=== PATIENT | female | born 1990 | race Hispanic/Latino ===

== ENCOUNTER → 2020-10-22 11:10 | Outpatient (CLI) | payer OTHER, MEDICAID, SELFPAY ==
[2020-10-22 21:08] LABS: Urine N gonorrhoeae NOT DETECTED
[2020-10-22 22:03] LABS: Urine Chlamydia NOT DETECTED
== END ==
PROVIDERS: PCP Physician Assistant Medical; Visit Provider Physician Assistant Medical
DX: N76.0 Acute vaginitis (principal); B96.89 Other specified bacterial agents as the cause of diseases classified elsewhere; R10.9 Unspecified abdominal pain
CPT/HCPCS: 81002; 81025; 87086; 87491; 87591

== ENCOUNTER → 2020-12-18 12:42 | Outpatient (CLI) | payer OTHER, SELFPAY ==
[2020-12-18 21:00] LABS: HIV 1 & 2 Ab/Ag 4th Gen Combo NEGATIVE (NEGATIVE)
[2020-12-20 02:24] LABS: Hepatitis B Core AB w/Reflex Negative (Negative)
[2020-12-20 09:49] LABS: RPR Screen Non Reactive (Non Reactive)
== END ==
PROVIDERS: PCP Physician Assistant Medical; Visit Provider Family Medicine
DX: Z11.3 Encounter for screening for infections with a predominantly sexual mode of transmission (principal); B96.89 Other specified bacterial agents as the cause of diseases classified elsewhere; N76.0 Acute vaginitis
CPT/HCPCS: 86592; 86704; 87102; 87389; 87491; 87522; 87591; 87661; 87905

== ENCOUNTER → 2021-04-16 14:59 | Outpatient (CLI) | payer OTHER, MEDICAID, SELFPAY | PROVIDERS: PCP Physician Assistant Medical; Visit Provider Family Medicine | DX: R30.0 Dysuria (principal); R35.89 Other polyuria | CPT/HCPCS: 87086 ==

== ENCOUNTER → 2021-06-11 11:15 | Outpatient (CLI) | payer OTHER, MEDICAID, SELFPAY ==
[2021-06-11 19:19] LABS: Add Manual Diff / Slide Review NO; Basophils Absolute Auto 0 /uL (0-100); Basophils Percent Auto 0.4 % (0-2); Eosinophils Absolute Auto 100 /uL (0-450); Eosinophils Percent Auto 0.9 % (2-4); Hematocrit 43.1 % (36-46); Hemoglobin 14.5 g/dL (12.0-16.0); Lymphocytes Absolute Auto 1700 /uL (1100-4500); Lymphocytes Percent Auto 21.3 % (25-40); Mean Corpuscular HGB Conc 33.6 % (30-36); Mean Corpuscular Hemoglobin 30.9 PG (26-34); Mean Corpuscular Volume 91.9 fL (80-100); Monocytes Absolute Auto 400 /uL (0-900); Monocytes Percent Auto 4.8 % (3-14); Neutrophils Absolute Auto 5800 /uL (1500-7000); Neutrophils Percent Auto 72.6 % (50-75); Platelet Count 278 X10^3/uL (150-400); Red Blood Cell Count 4.69 X10^6/uL (4.0-5.2); Red Cell Distribution Width 13.7 % (11.6-14.8); White Blood Cell Count 7.9 X10^3/uL (4.5-11.0)
[2021-06-11 19:25] LABS: Appearance Urine UA CLEAR; Bilirubin Urine UA NEGATIVE (NEGATIVE); Color Urine UA YELLOW; Glucose Urine UA NEGATIVE (Negative); Ketones Urine UA NEGATIVE (NEGATIVE); Leukocyte Esterase Urine UA NEGATIVE (NEGATIVE); Nitrite Urine UA NEGATIVE (Negative); Occult Blood Urine UA 3+ (Negative); Protein Urine UA TRACE (Negative); Urobilinogen Urine UA 0.2 E.U./dL (0.2)
[2021-06-11 19:36] LABS: Amorphous Sediment Urine 2+; RBC Urine 5-10/HPF (0-5/HPF); Squamous Epithelial Cell Urine 5-10 /HPF (0-5/HPF); WBC Urine None Seen (0-5/HPF)
[2021-06-11 19:37] LABS: Bacteria Urine Few (2-10); Culture Indicated Urine Cult Not Indicated
[2021-06-11 21:14] LABS: Urine N gonorrhoeae NOT DETECTED
[2021-06-11 21:22] LABS: Urine Chlamydia NOT DETECTED
== END ==
PROVIDERS: PCP Physician Assistant Medical; Visit Provider Physician Assistant Medical
DX: B96.89 Other specified bacterial agents as the cause of diseases classified elsewhere (principal); K92.1 Melena; N30.00 Acute cystitis without hematuria; N76.0 Acute vaginitis; Z11.3 Encounter for screening for infections with a predominantly sexual mode of transmission
CPT/HCPCS: 81001; 81002; 85025; 87491; 87591

== ENCOUNTER → 2022-03-18 15:23 | Outpatient (CLI) | payer OTHER, MEDICAID, SELFPAY | PROVIDERS: PCP Physician Assistant Medical; Visit Provider Physician Assistant Medical | DX: N39.0 Urinary tract infection, site not specified (principal) | CPT/HCPCS: 87086 ==

== ENCOUNTER → 2023-06-01 13:23 | Outpatient (CLI) | payer SELFPAY ==
[2023-06-01 18:46] LABS: Add Manual Diff / Slide Review NO; Basophils Absolute Auto 0 /uL (0-100); Basophils Percent Auto 0.5 % (0-2); Eosinophils Absolute Auto 100 /uL (0-450); Eosinophils Percent Auto 0.8 % (2-4); Hematocrit 42.7 % (36-46); Hemoglobin 14.1 g/dL (12.0-16.0); Lymphocytes Absolute Auto 2800 /uL (1100-4500); Lymphocytes Percent Auto 29.1 % (25-40); Mean Corpuscular HGB Conc 33.1 % (30-36); Mean Corpuscular Hemoglobin 30.1 PG (26-34); Mean Corpuscular Volume 91.1 fL (80-100); Monocytes Absolute Auto 600 /uL (0-900); Monocytes Percent Auto 5.9 % (3-14); Neutrophils Absolute Auto 6200 /uL (1500-7000); Neutrophils Percent Auto 63.7 % (50-75); Platelet Count 336 X10^3/uL (150-400); Red Blood Cell Count 4.69 X10^6/uL (4.0-5.2); Red Cell Distribution Width 13.4 % (11.6-14.8); White Blood Cell Count 9.7 X10^3/uL (4.5-11.0)
[2023-06-01 19:01] LABS: BUN Creatinine Ratio 16.7 (6-22); Blood Urea Nitrogen 11 mg/dL (7-17); Calcium 9.8 mg/dL (8.4-10.2); Carbon Dioxide 30 mmol/L (22-32); Chloride 103 mmol/L (98-107); Cholesterol 250 mg/dL (140-199); Estimated Glomerular Filt Rate > 60 mL/min (>60); Glucose 97 mg/dL (70-100); HDL Cholesterol 48 mg/dL (40-60); HEMOLYSIS < 15 (0-50); LDL Cholesterol Calculated 175 mg/dL (<100); Potassium 3.9 mmol/L (3.4-5.1); Sodium 139 mmol/L (137-145); Triglycerides 136 mg/dL (35-150)
[2023-06-01 19:10] LABS: Troponin I < 0.012 ng/mL (0.01-0.034)
== END ==
PROVIDERS: PCP Physician Assistant Medical; Visit Provider Family Medicine
DX: R07.9 Chest pain, unspecified (principal); K21.9 Gastro-esophageal reflux disease without esophagitis; Z87.19 Personal history of other diseases of the digestive system
CPT/HCPCS: 80048; 80061; 84484; 85025

== ENCOUNTER → 2023-06-28 15:50 | Outpatient (CLI) | payer SELFPAY | PROVIDERS: PCP Physician Assistant Medical; Visit Provider Physician Assistant | DX: R10.9 Unspecified abdominal pain (principal) | CPT/HCPCS: 87086 ==

== ENCOUNTER 2023-12-11 08:52 | Emergency (ER) | payer BC, SELFPAY ==
[2023-12-11] VITALS (9 sets, daily range): BP systolic 108–127; BP diastolic 57–82; PULSE 69–88; RESP 16; TEMP 36.6; O2SAT 94–99; BMI 28.3
--- NOTE | 2023-12-11 09:16 | ED.ABDPAIN ---
HPI - Abdominal Pain General Chief Complaint: Abdominal Pain Stated Complaint: abd pain- hx of diverticulitis Time Seen by Provider: 12/11/23 09:08 Source: patient, RN notes reviewed and old records reviewed Mode of arrival: Ambulatory Limitations: no limitations History of Present Illness HPI narrative: This is a 33-year-old female with history of prior cholecystectomy, patient developed a right diverticular abscess that is sort of in developed or was adjacent to the right ovary. Patient had drain placed and this was removed 3 weeks ago. She has been subsequently improving until the last 3 days when she has had an increase in pain in the right lower quadrant in the same location. No fevers, no nausea or vomiting. States some slight right flank pain but after having a bowel movement that resolved. States she has been having normal regular bowel movements has been dark but not black or bloody. She notes she has been taking fiber regularly so sometimes they are a little bit looser after she takes fiber. Denies any dysuria, urgency or frequency. Did note that when she was had the abscess she would have discomfort in her belly right before or when she would urinate. She states that is starting to reoccur as well. Denies any vaginal bleeding or discharge. Patient was treated with vancomycin for C diff colitis in September of 2023. She also had oral antibiotics for her abscess. She has been following with Gastroenterology through [facility]. She has been trying to set up Gynecology follow up on [facility] where she lives. States prior surgeries include , prior cholecystectomy, drain which has since been removed 3 weeks ago for the abscess. No known drug allergies. Does use tobacco daily, occasional alcohol, denies any recreational drugs. Patient's primary care is on [facility]. Related Data Home Medications Medication Instructions Recorded Confirmed amoxicillin 875 mg-potassium tab PO BID 10/17/23 10/17/23 clavulanate 125 mg tablet ciprofloxacin HCl 500 mg tablet mg PO BID 10/17/23 10/17/23 oxycodone 5 mg tablet mg PO PRN 10/17/23 10/17/23 Previous Rx's Medication Instructions Recorded omeprazole 20 mg capsule,delayed 20 mg PO BID upper abd pain #30 09/12/23 release caps Allergies Allergy/AdvReac Type Severity Reaction Status Date / Time acetaminophen [From Vicodin] AdvReac Mild Vomiting Verified 08/05/24 08:16 hydrocodone [From Vicodin] AdvReac Mild Vomiting Verified 10/17/23 08:16 Review of Systems Review of Systems ROS Unobtainable: All systems reviewed & are unremarkable except as noted in HPI and below Patient History Medical History Chicken pox (~1990) Surgical History S/P cholecystectomy Family History Father Diabetes mellitus Hyperlipidemia Hepatitis C Mother Osteoporosis Grandfather Bladder cancer Social History Smoking Status: Current every day smoker Smoking Status: Current every day smoker Exam Narrative Exam Narrative: GENERAL: Alert and oriented x three, well-appearing female in mild distress HEENT: Head normocephalic, atraumatic, EOMI, pupils reactive, face symmetric, moist mucous membranes NECK: Supple, full range of motion CARDIOVASCULAR: Regular rate and rhythm without murmurs, rubs or gallops. RESPIRATORY: Breath sounds equal bilaterally, no wheezes rales or rhonchi. ABDOMEN: Soft, mild right lower quadrant tenderness. Normoactive bowel sounds all 4 quadrants. No guarding or rebound, rigidity, no mass, nondistended. : No CVA tenderness EXTREMITIES: Normal range of motion, no clubbing or edema. Neurovascularly intact NEUROLOGICAL: Cranial nerves II through XII grossly intact. Moving all extremities SKIN: Warm, dry, no petechiae, no rashes or lesions. Initial Vital Signs Initial Vital Signs: Vital Signs Blood Pressure 126/75 12/11/23 09:02 Course Orders Ordered: Discontinued Medications Ketorolac Tromethamine (Ketorolac 30 Mg/Ml Vial) 15 mg IV NOW ONE Stop: 12/11/23 09:29 Last Admin: 12/11/23 09:35 Dose: 15 mg Documented By: ARIAS Vital Signs Vital signs: Vital Signs - 8 hr 12/11/23 09:05 Temperature 97.8 F Pulse Rate 88 Respiratory Rate 16 Blood Pressure 126/75 Pulse Oximetry 99 Oxygen Delivery Method Room Air MDM - Abdominal Pain Lab Data 12/11/23 09:24 12/11/23 09:24 Labs: Lab Results 12/11/23 12/11/23 Range/Units 09:24 10:05 WBC 9.4 (4.5-11.0) X10^3/uL RBC 5.08 (4.0-5.2) X10^6/uL Hgb 14.9 (12.0-16.0) g/dL Hct 45.5 (36-46) % MCV 89.6 (80-100) fL MCH 29.4 (26-34) PG MCHC 32.8 (30-36) % RDW 13.6 (11.6-14.8) % Plt Count 372 (150-400) X10^3/uL Neut % (Auto) 68.0 (50-75) % Lymph % (Auto) 24.5 L (25-40) % [place] % (Auto) 5.8 (3-14) % Eos % (Auto) 1.1 L (2-4) % Baso % (Auto) 0.6 (0-2) % Neut # (Auto) 6400 (4818-2310) /uL Lymph # (Auto) 2300 (6176-4307) /uL [place]undy # (Auto) 500 (0-900) /uL Eos # (Auto) 100 (0-450) /uL Baso # (Auto) 100 (0-100) /uL Sodium 138 (137-145) mmol/L Potassium 4.0 (3.4-5.1) mmol/L Chloride 102 (98-107) mmol/L Carbon Dioxide 26 (22-32) mmol/L BUN 10 (7-17) mg/dL Creatinine 0.65 (0.52-1.04) mg/dL Estimated GFR > 60 (>60) mL/min BUN/Creatinine Ratio 15.4 (6-22) Glucose 83 (70-100) mg/dL Calcium 10.1 (8.4-10.2) mg/dL Total Bilirubin 0.6 (0.2-1.3) mg/dL AST 25 (14-36) IU/L ALT 28 (<35) IU/L Alkaline Phosphatase 75 (38-126) U/L Total Protein 8.5 H (6.3-8.2) g/dL Albumin 4.9 (3.5-5.0) g/dL Globulin 3.6 (1.7-4.1) g/dL Albumin/Globulin Ratio 1.4 (1.0-2.8) Lipase 49 (23-300) U/L Urine RBC 0-1/hpf (0-5/HPF) Urine WBC None seen (0-5/HPF) Ur Squamous Epith Cells 0-1 /hpf (0-5/HPF) Amorphous Sediment 3+ Urine Bacteria None seen (None) Ur Culture Indicated? Cult not indicated Vol Urine Centrifuged 10ml (spun) Point of care testing: Point of Care Testing Test Results Negative Urine Dip Bedside Urine Glucose Negative Bedside Urine Bilirubin - Negative Bedside Urine Ketone - Negative Urine Specific [place] 1.010 Bedside Urine Occult Blood +/- Bedside Urine pH 7.5 Bedside Urine Protein - Negative Bedside Urine Urobilinogen - Negative Bedside Urine Nitrite - Negative Bedside Urine Leukocytes +/- [address] scan - abdomen/pelvis: Radiologist's Impression: Close Abdomen/Pelvis CT (Signed) Bret Khan - 12/11/23 [place] [address] CT Scan Report Signed Patient: Vandana Pena MR#: [id number] : 1990 Acct:[id number] Age/Sex: 33 / F Date of Service: 12/11/23 Loc: ED Accession Number: [id number] Procedure: CT abdomen pelvis w con Ordering Provider: Kacey Pablo D.O. PROCEDURE: CT ABDOMEN PELVIS W CON INDICATIONS: RLQ pain, recent drain removed for ovary/R divertic abscess TECHNIQUE: After the administration of intravenous contrast, axial sections acquired from the lung bases to the pubic symphysis. Coronal and sagittal reformats were performed. For radiation dose reduction, the following was used: automated exposure control, adjustment of mA and/or kV according to patient size. COMPARISON: None. FINDINGS: Image quality: Diagnostic. Lower Chest: No significant findings. ABDOMEN: Liver: No solid mass. Gallbladder: Removed. Biliary ducts: No biliary dilation. Pancreas: No ductal dilation. Spleen: Size is within normal limits. Adrenal Glands: No adrenal nodules. Kidneys and Ureters: No hydronephrosis. No solid mass. No complex renal cystic lesion which requires follow up. Stomach and Bowel: A normal appendix is seen. No focal right lower quadrant inflammatory change is seen. Normal colonic caliber, without significant wall thickening. Colonic diverticulosis is seen, without findings of active diverticulitis. No residual peritoneal abscess is seen. Peritoneum: No abnormal intraperitoneal fluid. No free air. Ventral Wall: There is a fat containing epigastric hernia seen. Abdominal Nodes: No retroperitoneal or mesenteric adenopathy by size criteria. Vessels: Aorta and inferior vena cava are normal in size. PELVIS: Pelvic Organs: A normal uterus is seen. Within the left ovary, there is a rim enhancing cyst measuring up to 17 mm. There is a 3 cm right ovarian cyst seen. Bladder: No bladder wall thickening, accounting for underdistention. Pelvic Nodes: No enlarged lymph nodes. Miscellaneous: No inguinal hernias are seen. Bones: No aggressive osseous abnormality. IMPRESSION: Normal appendix. No focal right lower quadrant inflammatory change. A 3 cm right ovarian cyst is seen. In a patient of this age, this is almost certainly benign. In this patient with right lower quadrant pain, please consider a follow-up pelvic ultrasound for further evaluation. Presumed hemorrhagic cyst of the left ovary also noted. Colonic diverticulosis is seen, without findings of active diverticulitis. No residual diverticular abscess is seen in this patient with this given history. Additional findings: Fat containing epigastric hernia Cholecystectomy Dictated by: Bret Khan M.D. on 12/11/2023 at 9:31 Approved by: Bret Khan M.D. on 12/11/2023 at 9:35 MDM Narrative Medical decision making narrative: 33-year-old female with past medical history significant for right cholecystectomy, as well as a right-sided diverticular abscess that was adjacent to the ovary and required a drain which was just recently removed 3 weeks ago. Prior to that she also had C diff colitis in September of 2023 which was treated oral vancomycin. Patient's vitals are overall appropriate today, based on patient's history labs, urine and CT abdomen pelvis was felt appropriate as she was having recurrence of pain very similar to prior patient's high-risk for reoccurrence of abscess or intra-abdominal infection. Labs white count of 9.4 hemoglobin of 14.9 hematocrit of 45 platelets of 372. Sodium 138 potassium of 4 chloride 102 CO2 26 BUN 10 creatinine 0.65 glucose 3 LFTs are negative total protein is 8.5 lipase is 49. Urine, is negative. Point of care urine shows leukocyte esterase, no blood no nitrates. Microscopy shows 1 RBC 1 squamous no white cells 3+ sediment no bacteria. CT abdomen pelvis, shows normal appendix no focal right lower quadrant inflammatory changes seen normal colonic caliber without significant wall thickening diverticulosis without findings of acute diverticulitis no residual peritoneal abscess noted no abnormal intraperitoneal fluid no free air, there is a fat containing epigastric hernia, normal uterus with in the left ovary rim enhancing cyst measuring 17 mm and a 3 cm right ovarian cyst. Bladder shows no bladder wall thickening counting for underdistention no enlarged lymph nodes and no inguinal hernias. Presumed hemorrhagic cyst in the left ovary also noted as well as 3 cm right ovarian cyst. Patient received Toradol IV. Reviewed findings with patient does have bilateral ovarian cyst 17 mm on the left with a rim enhancing cyst likely hemorrhagic and a 3 cm right ovarian cyst but no inflammatory changes to suggest current infection, diverticulosis but no signs of diverticulitis and perineal abscess appears resolved with normal appendix. Discussed with patient to follow up with her Gastroenterology and Gynecology if mild but persistent symptoms. Discussed return precautions. Discharge Plan Departure Patient Disposition: Home Clinical Impression: Abdominal pain, Ovarian cyst Activity Restrictions/Additional Instructions: Your workup today does show ovarian cyst there was a 17 mm cyst on the left and a 3 cm right ovarian cyst. CT imaging does not show any signs of infection, no residual abscess or fluid collection, appendix appears normal. Please follow up with your Gastroenterology and Gynecology team if symptoms are persisting. Please return for fevers new or worsening abdominal back or flank pain, vomiting, lightheadedness or passing out, black or bloody stools or other new or concerning changes. Prescriptions: No Action omeprazole 20 mg capsule,delayed release(DR/EC) 20 mg PO BID Qty: 30 2RF ciprofloxacin HCl 500 mg tablet PO BID Patient Comments: TAKE 1 TABLET BY MOUTH TWICE DAILY FOR 14 DAYS amoxicillin-pot clavulanate 875-125 mg tablet PO BID Patient Comments: TAKE 1 TABLET BY MOUTH TWICE DAILY FOR 14 DAYS oxycodone 5 mg tablet PO PRN Patient Comments: [NO ORIGINAL SIG] Referrals: Edwina Alonso PA-C [Primary Care Provider] - Stand Alone Forms: Patient Portal/API
--- NOTE | 2023-12-11 09:29 | DI.CT.S_ITS ---
PROCEDURE: CT ABDOMEN PELVIS W CON INDICATIONS: RLQ pain, recent drain removed for ovary/R divertic abscess TECHNIQUE: After the administration of intravenous contrast, axial sections acquired from the lung bases to the pubic symphysis. Coronal and sagittal reformats were performed. For radiation dose reduction, the following was used: automated exposure control, adjustment of mA and/or kV according to patient size. COMPARISON: None. FINDINGS: Image quality: Diagnostic. Lower Chest: No significant findings. ABDOMEN: Liver: No solid mass. Gallbladder: Removed. Biliary ducts: No biliary dilation. Pancreas: No ductal dilation. Spleen: Size is within normal limits. Adrenal Glands: No adrenal nodules. Kidneys and Ureters: No hydronephrosis. No solid mass. No complex renal cystic lesion which requires follow up. Stomach and Bowel: A normal appendix is seen. No focal right lower quadrant inflammatory change is seen. Normal colonic caliber, without significant wall thickening. Colonic diverticulosis is seen, without findings of active diverticulitis. No residual peritoneal abscess is seen. Peritoneum: No abnormal intraperitoneal fluid. No free air. Ventral Wall: There is a fat containing epigastric hernia seen. Abdominal Nodes: No retroperitoneal or mesenteric adenopathy by size criteria. Vessels: Aorta and inferior vena cava are normal in size. PELVIS: Pelvic Organs: A normal uterus is seen. Within the left ovary, there is a rim enhancing cyst measuring up to 17 mm. There is a 3 cm right ovarian cyst seen. Bladder: No bladder wall thickening, accounting for underdistention. Pelvic Nodes: No enlarged lymph nodes. Miscellaneous: No inguinal hernias are seen. Bones: No aggressive osseous abnormality. IMPRESSION: Normal appendix. No focal right lower quadrant inflammatory change. A 3 cm right ovarian cyst is seen. In a patient of this age, this is almost certainly benign. In this patient with right lower quadrant pain, please consider a follow-up pelvic ultrasound for further evaluation. Presumed hemorrhagic cyst of the left ovary also noted. Colonic diverticulosis is seen, without findings of active diverticulitis. No residual diverticular abscess is seen in this patient with this given history. Additional findings: Fat containing epigastric hernia Cholecystectomy Dictated by: Bret Khan M.D. on 12/11/2023 at 9:31 Approved by: Bret Khan M.D. on 12/11/2023 at 9:35
[2023-12-11] MEDS: KETOROLAC 30 MG/ML VIAL 15 MG IV (09:35)
[2023-12-11 09:36] LABS: Add Manual Diff / Slide Review NO; Basophils Absolute Auto 100 /uL (0-100); Basophils Percent Auto 0.6 % (0-2); Eosinophils Absolute Auto 100 /uL (0-450); Eosinophils Percent Auto 1.1 % (2-4); Hematocrit 45.5 % (36-46); Hemoglobin 14.9 g/dL (12.0-16.0); Lymphocytes Absolute Auto 2300 /uL (1100-4500); Lymphocytes Percent Auto 24.5 % (25-40); Mean Corpuscular HGB Conc 32.8 % (30-36); Mean Corpuscular Hemoglobin 29.4 PG (26-34); Mean Corpuscular Volume 89.6 fL (80-100); Monocytes Absolute Auto 500 /uL (0-900); Monocytes Percent Auto 5.8 % (3-14); Neutrophils Absolute Auto 6400 /uL (1500-7000); Platelet Count 372 X10^3/uL (150-400); Red Blood Cell Count 5.08 X10^6/uL (4.0-5.2); Red Cell Distribution Width 13.6 % (11.6-14.8); White Blood Cell Count 9.4 X10^3/uL (4.5-11.0)
[2023-12-11 09:41] LABS: Alanine Aminotransferase 28 IU/L (<35); Albumin 4.9 g/dL (3.5-5.0); Albumin Globulin Ratio 1.4 (1.0-2.8); Alkaline Phosphatase 75 U/L (38-126); Aspartate Aminotransferase 25 IU/L (14-36); BUN Creatinine Ratio 15.4 (6-22); Bilirubin Total 0.6 mg/dL (0.2-1.3); Blood Urea Nitrogen 10 mg/dL (7-17); Calcium 10.1 mg/dL (8.4-10.2); Carbon Dioxide 26 mmol/L (22-32); Chloride 102 mmol/L (98-107); Estimated Glomerular Filt Rate > 60 mL/min (>60); Globulin 3.6 g/dL (1.7-4.1); Glucose 83 mg/dL (70-100); HEMOLYSIS < 15 (0-50); Lipase 49 U/L (23-300); Sodium 138 mmol/L (137-145); Total Protein 8.5 g/dL (6.3-8.2)
[2023-12-11 10:50] LABS: Amorphous Sediment Urine 3+; Bacteria Urine None Seen; Culture Indicated Urine Cult Not Indicated; RBC Urine 0-1/HPF (0-5/HPF); Squamous Epithelial Cell Urine 0-1 /HPF (0-5/HPF); Urine Volume 10mL (spun); WBC Urine None Seen (0-5/HPF)
== END 2023-12-11 11:15 | disposition home or self-care (01) ==
PROVIDERS: Emergency Provider Emergency Medicine; PCP Physician Assistant Medical
DX: N83.202 Unspecified ovarian cyst, left side (principal); N83.201 Unspecified ovarian cyst, right side; R10.9 Unspecified abdominal pain
CPT/HCPCS: 36415; 74177; 80053; 81003; 81015; 81025; 83690; 85025; 96374; 99284; J1885; Q9967

== ENCOUNTER 2023-12-28 10:45 | Inpatient (IN) | payer BC, SELFPAY ==
[2023-12-28] VITALS (21 sets, daily range): BP systolic 100–115; BP diastolic 57–73; PULSE 56–84; RESP 14–17; TEMP 36.6–36.8; O2SAT 94–98; BMI 29.2
--- NOTE | 2023-12-28 11:17 | ED_ITS ---
HPI - Abdominal Pain General Chief Complaint: Abdominal Pain Stated Complaint: r lower abd pain Time Seen by Provider: 12/28/23 11:17 Source: patient Mode of arrival: Ambulatory History of Present Illness HPI narrative: Patient is a 33-year-old male history of prior cholecystectomy and right diverticular abscess comes into the ED from home for evaluation of right lower quadrant abdominal pain ongoing and persistent for the past 3 days. States this is similar to when she has had issues with her diverticular disease in the past, states that she has an appointment in January with a GI doctor in order to discuss whether or not she will have any kind of ongoing surgeries or any other changes to her ongoing treatment for this. She also endorses some nausea and vomiting secondary to the pain. Nothing is making it better or worse. States that she was seen here few weeks ago for the same thing Review of records show that patient did have a CT scan on 12/11/2023 that showed a normal appendix with no inflammatory changes. Right ovarian cyst was seen and a presumed hemorrhagic cyst was the cause of her pain. There was diverticulosis but no active diverticulitis or abscess. Review of records shows that she does have a history of C diff colitis in September of 2023. Was treated with oral vancomycin. Has been following with GI through [facility]. Patient's primary doctors [facility] Related Data Previous Rx's Medication Instructions Recorded omeprazole 20 mg capsule,delayed 20 mg PO BID upper abd pain #30 09/12/23 release caps Allergies Allergy/AdvReac Type Severity Reaction Status Date / Time acetaminophen [From Vicodin] AdvReac Mild Vomiting Verified 12/28/23 11:07 hydrocodone [From Vicodin] AdvReac Mild Vomiting Verified 12/28/23 11:07 Review of Systems Review of Systems Narrative: General: Denies fever, chills, weight loss HEENT: Denies headache, eye drainage, eye irritation, head trauma, sore throat, voice change Cardiovascular: Denies any chest pain, palpitations, shortness of breath, tachycardia Respiratory: Denies any shortness of breath, cough, wheeze, stridor GI/: Positive abdominal pain, nausea, vomiting, denies diarrhea, bright red blood per rectum, melanotic stools, urinary frequency, urinary retention, dysuria, hematuria MSK: Denies any joint pain, muscle pains, swelling Skin: Denies any rashes, lesions, discoloration Neuro: Denies any headache, lightheadedness, dizziness, fainting, weakness Psych: Denies SI/HI Patient History Medical History Chicken pox (~1990) Surgical History S/P cholecystectomy Family History Father Diabetes mellitus Hyperlipidemia Hepatitis C Mother Osteoporosis Grandfather Bladder cancer Social History Smoking Status: Current every day smoker Smoking Status: Current every day smoker alcohol intake frequency: holidays/special occasions only Substance Use Type: marijuana Exam Narrative Exam Narrative: General: Cooperative, comfortable, well-developed, not in acute distress HEENT: Normocephalic, atraumatic, PERRLA, normal sclera, eyelids normal, Neck: Active full range of motion, atraumatic Chest: Normal to inspection, negative crepitus, no overlying erythema ecchymosis Respiratory: Normal respiratory effort, not in acute respiratory distress, clear to auscultation bilaterally negative cough, wheeze, tachypnea, rhonchi, rales Cardiology: Regular rate rhythm negative gallop, murmur, rubs GI/: Normal to inspection, soft, nonrigid, mild tenderness to palpation to right lower quadrant, exam deferred MSK: Full range of active range of motion of all 4 extremities, atraumatic Skin: No rashes lesions noted Neuro: Alert awake oriented x3, moves all 4 extremities spontaneously, cranial nerves intact, able to answer all questions appropriately follows commands appropriately Psych: Cooperative, negative suicidal or homicidal ideations Initial Vital Signs Initial Vital Signs: Vital Signs Temperature 97.9 F 12/28/23 11:00 Pulse Rate 71 12/28/23 11:00 Respiratory Rate 14 12/28/23 11:00 Blood Pressure 115/68 12/28/23 11:00 Pulse Oximetry 97 12/28/23 11:00 Oxygen Delivery Method Room Air 12/28/23 11:00 Course Orders Ordered: ED Orders 12/28/23 11:17 CT abdomen pelvis w con Stat 12/28/23 11:28 Complete Blood Count AUTO DIFF Stat Comprehensive Metabolic Panel Stat Lactate (Lactic Acid) Stat Lipase Stat 12/28/23 12:10 Urine Microscopic Stat 12/28/23 17:46 Education, smoking cessation ONGOING 12/29/23 Basic Metabolic Panel Routine Complete Blood Count AUTO DIFF Routine Hydrocodone Bitart/Acetaminophen (Hydrocodone/Acet 5/325 Tablet) 1 tab PO Q4H PRN PRN Reason: Pain, Moderate (4-6) Sodium Chloride (Normal Saline 0.9%) 1,000 mls @ 100 mls/hr IV CONT GENARO Ibuprofen (Ibuprofen 600 Mg Tablet) 600 mg PO Q6H PRN PRN Reason: Fever/Mild Pain (1-3) Naloxone HCl (Naloxone 0.4 Mg/Ml Vial) 0.2 mg IV Q2MIN PRN PRN Reason: Opiate Reversal Ondansetron HCl (Ondansetron 4 Mg/2 Ml Inj) 4 mg IV NOW PRN PRN Reason: Nausea And Vomiting Last Admin: 12/28/23 11:19 Dose: 4 mg Documented By: PATRICK Ondansetron HCl (Ondansetron 4 Mg Odt) 4 mg PO NOW PRN PRN Reason: Nausea And Vomiting Discontinued Medications Hydromorphone HCl (Hydromorphone 1 Mg Inj) 0.5 mg IV NOW ONE Stop: 12/28/23 17:01 Last Admin: 12/28/23 17:42 Dose: 0.5 mg Documented By: PATRICK(2) Piperacillin Sod/Tazobactam (Sod 4.5 gm/ Sodium Chloride) 100 mls @ 200 mls/hr IV NOW ONE Stop: 12/28/23 12:39 Last Infusion: 12/28/23 14:06 Dose: Infused Documented By: Admin: 12/28/23 13:13 Dose: 200 mls/hr Documented By: PATRICK Morphine Sulfate (Morphine 4 Mg/Ml Inj) 4 mg IV NOW ONE Stop: 12/28/23 11:33 Last Admin: 12/28/23 11:35 Dose: 4 mg Documented By: PATRICK Morphine Sulfate (Morphine 4 Mg/Ml Inj) 4 mg IV NOW ONE Stop: 12/28/23 13:59 Last Admin: 12/28/23 14:09 Dose: 4 mg Documented By: HANSA Vital Signs Vital signs: Vital Signs - 8 hr 12/28/23 11:00 12/28/23 11:30 12/28/23 11:32 Temperature 97.9 F Pulse Rate 71 56 L 67 Respiratory Rate 14 Blood Pressure 115/68 Pulse Oximetry 97 97 95 Oxygen Delivery Method Room Air 12/28/23 11:32 12/28/23 12:00 12/28/23 12:00 Temperature Pulse Rate 70 Respiratory Rate Blood Pressure 100/61 104/73 Pulse Oximetry 94 Oxygen Delivery Method 12/28/23 12:30 12/28/23 13:00 12/28/23 13:30 Temperature Pulse Rate 58 L 70 72 Respiratory Rate Blood Pressure Pulse Oximetry 97 97 95 Oxygen Delivery Method 12/28/23 14:00 12/28/23 14:30 12/28/23 15:00 Temperature Pulse Rate 57 L 73 78 Respiratory Rate Blood Pressure 106/69 Pulse Oximetry 97 95 96 Oxygen Delivery Method 12/28/23 15:12 12/28/23 15:12 12/28/23 15:30 Temperature Pulse Rate 73 69 Respiratory Rate Blood Pressure 106/69 Pulse Oximetry 95 94 Oxygen Delivery Method 12/28/23 15:30 12/28/23 16:00 12/28/23 16:00 Temperature Pulse Rate 67 Respiratory Rate Blood Pressure 109/67 102/59 L Pulse Oximetry 96 Oxygen Delivery Method 12/28/23 16:30 12/28/23 16:30 12/28/23 17:00 Temperature Pulse Rate 72 78 Respiratory Rate Blood Pressure 105/57 L Pulse Oximetry 98 97 Oxygen Delivery Method 12/28/23 17:00 12/28/23 17:30 12/28/23 17:30 Temperature Pulse Rate 74 Respiratory Rate Blood Pressure 103/66 109/62 Pulse Oximetry 94 Oxygen Delivery Method 12/28/23 18:00 12/28/23 18:01 12/28/23 18:01 Temperature Pulse Rate 69 69 Respiratory Rate Blood Pressure 107/59 L Pulse Oximetry 95 94 Oxygen Delivery Method MDM - Abdominal Pain Differential Diagnosis Differential diagnosis: Likely abdominal pain, acute appendicitis, constipation, diverticulitis, small bowel obstruction and other (Urinary tract infection) Lab Data 12/28/23 11:28 12/28/23 11:28 Labs: Lab Results 12/28/23 12/28/23 Range/Units 11:28 12:10 WBC 10.5 (4.5-11.0) X10^3/uL RBC 4.45 (4.0-5.2) X10^6/uL Hgb 13.1 (12.0-16.0) g/dL Hct 39.5 (36-46) % MCV 89.0 (80-100) fL MCH 29.4 (26-34) PG MCHC 33.1 (30-36) % RDW 14.0 (11.6-14.8) % Plt Count 339 (150-400) X10^3/uL Neut % (Auto) 76.1 H (50-75) % Lymph % (Auto) 17.2 L (25-40) % [place] % (Auto) 5.9 (3-14) % Eos % (Auto) 0.6 L (2-4) % Baso % (Auto) 0.2 (0-2) % Neut # (Auto) 8000 H (5296-6850) /uL Lymph # (Auto) 1800 (9119-0395) /uL [place] # (Auto) 600 (0-900) /uL Eos # (Auto) 100 (0-450) /uL Baso # (Auto) 0 (0-100) /uL Sodium 134 L (137-145) mmol/L Potassium 4.0 (3.4-5.1) mmol/L Chloride 101 (98-107) mmol/L Carbon Dioxide 28 (22-32) mmol/L BUN 5 L (7-17) mg/dL Creatinine 0.65 (0.52-1.04) mg/dL Estimated GFR > 60 (>60) mL/min BUN/Creatinine Ratio 7.7 (6-22) Glucose 95 (70-100) mg/dL Lactate 0.7 (0.7-2.1) mmol/L Calcium 9.1 (8.4-10.2) mg/dL Total Bilirubin 0.5 (0.2-1.3) mg/dL AST 20 (14-36) IU/L ALT 15 (<35) IU/L Alkaline Phosphatase 61 (38-126) U/L Total Protein 7.1 (6.3-8.2) g/dL Albumin 3.9 (3.5-5.0) g/dL Globulin 3.2 (1.7-4.1) g/dL Albumin/Globulin Ratio 1.2 (1.0-2.8) Lipase 28 (23-300) U/L Urine RBC None seen (0-5/HPF) Urine WBC None seen (0-5/HPF) Ur Squamous Epith Cells 0-1 /hpf (0-5/HPF) Urine Bacteria None seen (None) Ur Culture Indicated? Cult not indicated Vol Urine Centrifuged 10ml (spun) Point of care testing: Point of Care Testing Test Results Negative Urine Dip Bedside Urine Glucose Negative Bedside Urine Bilirubin - Negative Bedside Urine Ketone - Negative Urine Specific [place] 1.010 Bedside Urine Occult Blood +/- Bedside Urine pH 7.5 Bedside Urine Protein - Negative Bedside Urine Urobilinogen - Negative Bedside Urine Nitrite - Negative Bedside Urine Leukocytes - Negative Esterase Imaging Data CT scan - abdomen/pelvis: Radiologist's Impression: [address] [address] [address] Scan Report Signed Patient: Vandana Pena MR#: [id number] : 1990 Acct:[id number] Age/Sex: 33 / F Date of Service: 12/28/23 Loc: ED Accession Number: [id number] Procedure: CT abdomen pelvis w con Ordering Provider: Jus Lafleur D.O. PROCEDURE: CT ABDOMEN PELVIS W CON INDICATIONS: RLQ abd pain with hx of abscess/SCANNED 12-10 TECHNIQUE: After the administration of intravenous contrast, axial sections acquired from the lung bases to the pubic symphysis. Coronal and sagittal reformats were performed. For radiation dose reduction, the following was used: automated exposure control, adjustment of mA and/or kV according to patient size. COMPARISON: [facility], CT, CT ABDOMEN PELVIS W CON, 12/11/2023, 10:03. FINDINGS: Image quality: Diagnostic. Lower Chest: No significant findings. ABDOMEN: Liver: No solid mass. Gallbladder: Removed. Biliary ducts: No biliary dilation. Pancreas: No ductal dilation. Spleen: Size is within normal limits. Adrenal Glands: No adrenal nodules. Kidneys and Ureters: No hydronephrosis. No solid mass. No complex renal cystic lesion which requires follow up. Stomach and Bowel: Focal inflammatory change can be seen involving the right lower quadrant of the abdomen. Within this inflammation, there is a focal rim enhancing fluid collection seen anteriorly, with a maximum axial extent 3.4 x 1.9 cm, with a craniocaudal extent of 2.4 cm. Previously, patient had a fluid collection within the right lower quadrant that was described as being a right ovarian cyst, measuring 3 cm. Slightly more inferior and posterior to the discrete fluid collection, there is a more amorphous collection of gas and fluid measures 3.6 x 5 x 3.4 cm. There is associated inflammatory change of the adjacent sigmoid colon, with diverticula formation seen. The sigmoid colon is tortuous and migrates partially into the right lower quadrant. No dilated loops of small bowel are seen. A few loops of inflamed small bowel can be seen within the right lower quadrant. A normal appendix is seen, as on series 2 images 91 through 96 and on series 4, image 76. Peritoneum: No abnormal intraperitoneal fluid. No free air. Ventral Wall: There is a moderate containing epigastric hernia inflammation associated with the hernia. Abdominal Nodes: No retroperitoneal or mesenteric adenopathy by size criteria. Vessels: Aorta and inferior vena cava are normal in size. PELVIS: Pelvic Organs: The uterus appears normal for age. No adnexal masses are seen. Bladder: No bladder wall thickening, accounting for underdistention. Pelvic Nodes: No enlarged lymph nodes. Miscellaneous: No inguinal hernias are seen. Bones: No aggressive osseous abnormality. IMPRESSION: 3.4 cm fluid collection seen within the right lower quadrant, which is attributed to an abscess. Adjacent to the discrete abscess, there is a 5 cm collection of fluid and gas, which is attributed to a contained perforation from diverticulitis. Adjacent to the extra luminal gas and fluid, there is diverticulitis of the sigmoid colon, with inflamed sigmoid colon, which is tortuous and migrates into the right lower quadrant. The appendix is normal. There is a moderately sized fat containing epigastric hernia seen, with inflammatory changes are seen with a hernia. This hernia has increased in size compared to the recent CT dated 12/11/2023. [facility] Narrative Medical decision making narrative: Patient is a 33-year-old female with a history of diverticular abscess to the right lower quadrant comes into the ED from home for evaluation of abdominal pain, nausea vomiting. States that this started approximately 3 days ago. She did have CT scan performed on 12/11/2023 for the same symptoms but she returns due to worsening pain. 1239: Discussed case with Dr. Khan, radiologist, who states that there is a right diverticulitis with abscess and it contained perforation, call placed out to General surgery, IV Zosyn ordered 1310: Discussed case with general surgeon Dr. Mendosa, who states that patient should have drain placed by Interventional Radiology, states to reach out to our interventional radiologist here to see if they can do this drainage, states that if they are able to would be able to be admitted here for continue IV antibiotics 1313: Dr. cali, radiologist, states that he will review the images and call back to decide whether or not drain placement would be possible here. 1800: Discussed case with Dr. Mendosa again, informed him that it is going to take over 24 hours to have the patient transferred for Interventional Radiology, we discussed the case again along with the patient and it was decided that patient will be admitted here and treated with IV antibiotics, The patient's management plan was discussed Dr. Mendosa, who agrees to admit the patient to their service and assumes care of this patient at this time. Full admission orders will be placed by the primary team. Discharge Plan Departure Patient Disposition: Admitted As Inpatient Clinical Impression: Colonic diverticular abscess Admit Date/Time: 12/28/23 18:10 Admit Provider: Edison Mendosa
[2023-12-28] MEDS: ONDANSETRON 4 MG/2 ML INJ IV (11:19)
[2023-12-28] MEDS: MORPHINE 4 MG/ML INJ IV ×2 (11:35→14:09)
[2023-12-28 11:37] LABS: Add Manual Diff / Slide Review NO; Basophils Absolute Auto 0 /uL (0-100); Basophils Percent Auto 0.2 % (0-2); Eosinophils Absolute Auto 100 /uL (0-450); Eosinophils Percent Auto 0.6 % (2-4); Hematocrit 39.5 % (36-46); Hemoglobin 13.1 g/dL (12.0-16.0); Lymphocytes Absolute Auto 1800 /uL (1100-4500); Lymphocytes Percent Auto 17.2 % (25-40); Mean Corpuscular HGB Conc 33.1 % (30-36); Mean Corpuscular Hemoglobin 29.4 PG (26-34); Monocytes Absolute Auto 600 /uL (0-900); Monocytes Percent Auto 5.9 % (3-14); Neutrophils Absolute Auto 8000 /uL (1500-7000); Neutrophils Percent Auto 76.1 % (50-75); Platelet Count 339 X10^3/uL (150-400); Red Blood Cell Count 4.45 X10^6/uL (4.0-5.2); White Blood Cell Count 10.5 X10^3/uL (4.5-11.0)
[2023-12-28 11:49] LABS: Alanine Aminotransferase 15 IU/L (<35); Albumin 3.9 g/dL (3.5-5.0); Albumin Globulin Ratio 1.2 (1.0-2.8); Alkaline Phosphatase 61 U/L (38-126); Aspartate Aminotransferase 20 IU/L (14-36); BUN Creatinine Ratio 7.7 (6-22); Bilirubin Total 0.5 mg/dL (0.2-1.3); Blood Urea Nitrogen 5 mg/dL (7-17); Calcium 9.1 mg/dL (8.4-10.2); Carbon Dioxide 28 mmol/L (22-32); Chloride 101 mmol/L (98-107); Estimated Glomerular Filt Rate > 60 mL/min (>60); Globulin 3.2 g/dL (1.7-4.1); Glucose 95 mg/dL (70-100); HEMOLYSIS < 15 (0-50); Lipase 28 U/L (23-300); Sodium 134 mmol/L (137-145); Total Protein 7.1 g/dL (6.3-8.2)
[2023-12-28 11:50] LABS: Lactate (Lactic Acid) 0.7 mmol/L (0.7-2.1)
[2023-12-28] MEDS: PIPERACILLIN/TAZO 4.5 GM in SODIUM CHLORIDE 0.9% 100 ML IV (13:13)
[2023-12-28 13:44] LABS: Bacteria Urine None Seen; Culture Indicated Urine Cult Not Indicated; RBC Urine None Seen (0-5/HPF); Squamous Epithelial Cell Urine 0-1 /HPF (0-5/HPF); Urine Volume 10mL (spun); WBC Urine None Seen (0-5/HPF)
--- NOTE | 2023-12-28 14:24 | PC.NURSE ---
Addendum entered by Sharyn Noel CNA 12/28/23 16:35: 1622: [facility], spoke to Jennifer to verify who their IR was for today. She stated they actually don't have IR and they are treat and transfer for IR needed cases. 1632: Estefanía/Ana, tried calling. No answer phone just kept ringing 1633: Aimee Paris/AALIYAH Stephenson, spoke with Nayan, he will call back once finished with his current task Original Note: Hospital call list for potential transfer 1337: [facility], spoke with Rosaura, patient on wait list 1410: [facility], spoke with Lilly, patient on wait list
--- NOTE | 2023-12-28 17:27 | PM.CN ---
History of Present Illness Consult details Date Patient Seen: 12/28/23 Time Patient Seen: 17:27 Chief complaint: r lower abd pain Narrative: Vandana is a 33-year-old woman who presents with diverticular abscess. She did have a diverticular abscess back in the August timeframe. She was admitted at [facility] in [place] and had a percutaneous drain placed. She was in the hospital for about a week with a drain and then was discharged home with the drain for another week. She started to experience pain again last week and came in to the emergency department here where a CT scan was performed and was read as normal. The pain persisted and she came back today and a repeat CT scan shows reoccurrence of a diverticular abscess in the right lower quadrant. This appears to be coming from a loop of sigmoid colon that is reaching across to the right lower quadrant. Meds Home Medications and Allergies Home Medications Medication Instructions Recorded Confirmed Type omeprazole 20 mg capsule,delayed 20 mg PO BID upper abd pain #30 09/12/23 12/16/23 Rx release caps Allergies Allergy/AdvReac Type Severity Reaction Status Date / Time acetaminophen [From Vicodin] AdvReac Mild Vomiting Verified 12/28/23 11:07 hydrocodone [From Vicodin] AdvReac Mild Vomiting Verified 12/28/23 11:07 Exam Vital Signs (past 8 hours): - 12/28/23 11:00 12/28/23 11:30 12/28/23 11:32 Temperature 97.9 F Pulse Rate 71 56 L 67 Respiratory Rate 14 Blood Pressure 115/68 Pulse Oximetry 97 97 95 Oxygen Delivery Method Room Air 12/28/23 11:32 12/28/23 12:00 12/28/23 12:00 Temperature Pulse Rate 70 Respiratory Rate Blood Pressure 100/61 104/73 Pulse Oximetry 94 Oxygen Delivery Method 12/28/23 12:30 12/28/23 13:00 12/28/23 13:30 Temperature Pulse Rate 58 L 70 72 Respiratory Rate Blood Pressure Pulse Oximetry 97 97 95 Oxygen Delivery Method 12/28/23 14:00 12/28/23 14:30 12/28/23 15:00 Temperature Pulse Rate 57 L 73 78 Respiratory Rate Blood Pressure 106/69 Pulse Oximetry 97 95 96 Oxygen Delivery Method 12/28/23 15:12 12/28/23 15:12 12/28/23 15:30 Temperature Pulse Rate 73 69 Respiratory Rate Blood Pressure 106/69 Pulse Oximetry 95 94 Oxygen Delivery Method 12/28/23 15:30 12/28/23 16:00 12/28/23 16:00 Temperature Pulse Rate 67 Respiratory Rate Blood Pressure 109/67 102/59 L Pulse Oximetry 96 Oxygen Delivery Method Oxygen Delivery Method Room Air Narrative Exam Narrative: Tender to palpation in the right lower quadrant No peritoneal signs Objective Labs 12/28/23 11:28 12/28/23 11:28 Labs: Laboratory Results - last 24 hr 12/28/23 12/28/23 11:28 12:10 WBC 10.5 RBC 4.45 Hgb 13.1 Hct 39.5 MCV 89.0 MCH 29.4 MCHC 33.1 RDW 14.0 Plt Count 339 Neut % (Auto) 76.1 H Lymph % (Auto) 17.2 L [place] % (Auto) 5.9 Eos % (Auto) 0.6 L Baso % (Auto) 0.2 Neut # (Auto) 8000 H Lymph # (Auto) 1800 [place] # (Auto) 600 Eos # (Auto) 100 Baso # (Auto) 0 Sodium 134 L Potassium 4.0 Chloride 101 Carbon Dioxide 28 BUN 5 L Creatinine 0.65 Estimated GFR > 60 BUN/Creatinine Ratio 7.7 Glucose 95 Lactate 0.7 Calcium 9.1 Total Bilirubin 0.5 AST 20 ALT 15 Alkaline Phosphatase 61 Total Protein 7.1 Albumin 3.9 Globulin 3.2 Albumin/Globulin Ratio 1.2 Lipase 28 Urine RBC None seen Urine WBC None seen Ur Squamous Epith Cells 0-1 /hpf Urine Bacteria None seen Ur Culture Indicated? Cult not indicated Vol Urine Centrifuged 10ml (spun) [facility] Medical History Chicken pox (~1990) Surgical History S/P cholecystectomy Family History Father Diabetes mellitus Hyperlipidemia Hepatitis C Mother Osteoporosis Grandfather Bladder cancer Tobacco & Substance Use Smoking Status: Current every day smoker Assessment & Plan Assessment and plan (1) Diverticulitis of intestine with abscess: Qualifiers: Diverticulitis site: unspecified part of intestinal tract Diverticulitis bleeding: unspecified bleeding status Qualified Code(s): K57.80 - Diverticulitis of intestine, part unspecified, with perforation and abscess without bleeding Status: Acute Plan I recommend percutaneous drainage of the right lower quadrant abscess in addition to IV antibiotics. Dr. Erickson has reached out to several other facilities to see if she could be transferred for a percutaneous drain. Percutaneous drainage would allow her to resolve her diverticulitis and then we could discuss an elective sigmoid colon resection with a much lower risk of needing a colostomy. If she was unable to receive a percutaneous drain I would recommend admission with IV antibiotics see if her symptoms improve with a goal of scheduling her for an elective sigmoid colon resection. She does not have any immediate indication for emergency surgery such as peritonitis or tachycardia. Time-Based Coding :: [TOTAL MINUTES] spent with patient and on the chart (including review of chart, obtaining history, exam, reviewing outside data, placing orders, documenting exam and treatment plan, and counseling patient) on [DATE].
[2023-12-28] MEDS: HYDROMORPHONE 1 MG INJ 0.5 MG IV ×3 (17:42→22:11)
[2023-12-28] MEDS: SODIUM CHLORIDE 0.9% 1,000 ML 100 ML IV (18:20)
--- NOTE | 2023-12-28 18:54 | PC.NURSE ---
Admit Note Patient arrived to room 229 from ER via wheelchair at 1845. Alert and oriented x3, independent. Reports pain improved to abdomen but denies need for pain medications at this time. Oriented to call light/bed/tv controls, instructed to use call light as needed. Called Dr. Mendosa to clarify transfer status, Dr. Mendosa stated no need to actively follow up on transferring at this time but that if any hospital did call back to accept/inquire to move forward with transfer.
[2023-12-28] MEDS: ONDANSETRON 4 MG ODT PO (19:31)
[2023-12-28] MEDS: PIPERACILLIN/TAZO 3.375 GM in SODIUM CHLORIDE 0.9% 100 ML IV (20:55)
[2023-12-28 21:39] LABS: MRSA (Nasal) PCR NOT DETECTED (Not Detect)
[2023-12-29] VITALS: BP 114/78; PULSE 97; RESP 18; TEMP 36.5; O2SAT 97
[2023-12-29] MEDS: ONDANSETRON 4 MG/2 ML INJ IV (00:12)
[2023-12-29 04:00] VITALS: BP 108/74; PULSE 77; RESP 16; TEMP 36.7; O2SAT 95
[2023-12-29 04:56] LABS: Add Manual Diff / Slide Review NO; Basophils Absolute Auto 0 /uL (0-100); Basophils Percent Auto 0.2 % (0-2); Eosinophils Absolute Auto 100 /uL (0-450); Eosinophils Percent Auto 0.7 % (2-4); Hematocrit 41.1 % (36-46); Hemoglobin 13.6 g/dL (12.0-16.0); Lymphocytes Absolute Auto 2000 /uL (1100-4500); Lymphocytes Percent Auto 17.8 % (25-40); Mean Corpuscular HGB Conc 33.2 % (30-36); Mean Corpuscular Hemoglobin 29.5 PG (26-34); Mean Corpuscular Volume 88.9 fL (80-100); Monocytes Absolute Auto 600 /uL (0-900); Monocytes Percent Auto 5.5 % (3-14); Neutrophils Absolute Auto 8400 /uL (1500-7000); Neutrophils Percent Auto 75.8 % (50-75); Platelet Count 352 X10^3/uL (150-400); Red Blood Cell Count 4.62 X10^6/uL (4.0-5.2); Red Cell Distribution Width 13.8 % (11.6-14.8); White Blood Cell Count 11.1 X10^3/uL (4.5-11.0)
[2023-12-29 05:05] LABS: Blood Urea Nitrogen 4 mg/dL (7-17); Calcium 9.2 mg/dL (8.4-10.2); Carbon Dioxide 25 mmol/L (22-32); Chloride 101 mmol/L (98-107); Estimated Glomerular Filt Rate > 60 mL/min (>60); Glucose 86 mg/dL (70-100); HEMOLYSIS < 15 (0-50); Potassium 3.6 mmol/L (3.4-5.1); Sodium 137 mmol/L (137-145)
[2023-12-29] MEDS: PIPERACILLIN/TAZO 3.375 GM in SODIUM CHLORIDE 0.9% 100 ML IV ×3 (05:10→20:34)
[2023-12-29] MEDS: HYDROMORPHONE 1 MG INJ 0.5 MG IV ×3 (06:24→22:55)
[2023-12-29] MEDS: SODIUM CHLORIDE 0.9% 1,000 ML 100 ML IV ×2 (06:24→18:26)
[2023-12-29 08:00] VITALS: BP 109/68; PULSE 64; RESP 16; TEMP 36.9; O2SAT 95
[2023-12-29] MEDS: IBUPROFEN 600 MG TABLET PO (09:39)
[2023-12-29 12:00] VITALS: BP 105/74; PULSE 56; RESP 16; TEMP 36.9; O2SAT 97
--- NOTE | 2023-12-29 12:35 | PM.PN.1 ---
Subjective Subjective Date Patient Seen: 12/29/23 Time Patient Seen: 12:35 Interval history: Feel slightly better today. Still has right lower quadrant abdominal pain. Tolerating clear liquids. Exam Vital Signs (past 8 hours): - 12/29/23 07:00 12/29/23 08:00 Temperature 98.5 F Pulse Rate 64 Respiratory Rate 16 Blood Pressure 109/68 Pulse Oximetry 95 Oxygen Delivery Method Room Air Oxygen Delivery Method Room Air Oxygen Flow Rate 0 Narrative Exam Narrative: Abdomen is soft, tender to palpation in the right lower quadrant There is a palpable mass in the right lower quadrant Objective Labs 12/29/23 03:55 12/29/23 03:55 Labs: Laboratory Results - last 24 hr 12/28/23 12/28/23 12/29/23 12:10 20:15 03:55 WBC 11.1 H RBC 4.62 Hgb 13.6 Hct 41.1 MCV 88.9 MCH 29.5 MCHC 33.2 RDW 13.8 Plt Count 352 Neut % (Auto) 75.8 H Lymph % (Auto) 17.8 L [place] % (Auto) 5.5 Eos % (Auto) 0.7 L Baso % (Auto) 0.2 Neut # (Auto) 8400 H Lymph # (Auto) 2000 [place] # (Auto) 600 Eos # (Auto) 100 Baso # (Auto) 0 Sodium 137 Potassium 3.6 Chloride 101 Carbon Dioxide 25 BUN 4 L Creatinine 0.67 Estimated GFR > 60 BUN/Creatinine Ratio 6.0 Glucose 86 Calcium 9.2 Urine RBC None seen Urine WBC None seen Ur Squamous Epith Cells 0-1 /hpf Urine Bacteria None seen Ur Culture Indicated? Cult not indicated Vol Urine Centrifuged 10ml (spun) Nasal Screen MRSA (PCR) Not detected [facility] Medical History Chicken pox (~1990) Surgical History S/P cholecystectomy Family History Father Diabetes mellitus Hyperlipidemia Hepatitis C Mother Osteoporosis Grandfather Bladder cancer Social History household members: children Smoking Status: Current every day smoker Assessment & Plan Assessment and plan (1) Diverticulitis of intestine with abscess: Qualifiers: Diverticulitis site: unspecified part of intestinal tract Diverticulitis bleeding: unspecified bleeding status Qualified Code(s): K57.80 - Diverticulitis of intestine, part unspecified, with perforation and abscess without bleeding Status: Acute Plan Continue IV antibiotics Advance diet as tolerates Time-Based Coding :: [TOTAL MINUTES] spent with patient and on the chart (including review of chart, obtaining history, exam, reviewing outside data, placing orders, documenting exam and treatment plan, and counseling patient) on [DATE].
[2023-12-29] MEDS: HYDROMORPHONE 1 MG INJ IV ×2 (12:42→18:23)
--- NOTE | 2023-12-29 15:52 | CM.DANOTE ---
B DCP Assessment Note Pt is a 33yo F here with diverticulitis of intestine with abscess. PMH of diverticular abscess in August and was admitted at [facility] in [place] where she had a percutaneous drain placed. PCP Edwina Villa and self pay WATERSHED COORDINATOR reviewed EMR. Pt lives on [facility] with children. per chart, lives in an RV. Works at [employer] on [address]. Per Dr. Mendosa notes, pt tolerating clears, plan to advance diet as able and treat conservatively with IV abx. ' WATERSHED COORDINATOR unable to meet with pt today due to triaging needs. P: anticipate home when medically stable, will follow close for transport/work excuse letter needs. CM team will notify TCM OP team at [facility]. CM team will follow closely for any additional needs that arise. BRYSON Loja Discharge Planning/Care Management CM Discharge Assessment Start: 12/29/23 15:50 Freq: Status: Active Protocol: Document 12/29/23 15:50 (Rec: 12/29/23 15:52 [id number]) Discharge Planning Assessment Assigned Continuing Education Specialist BRYSON Rosales DPOA/Assigned Designee Name mae Carr Contact Information [phone] Advance Directives? No History Provided By Medical Record Prior Living Arrangements RV Household Members children Barriers to Discharge No Discharge Plan Home Referrals Initiated None needed Whiteboard Updated in Patient Room with No name and ext. # of Continuing Education Specialist Review Status In Process Please Provide Date Initial DC 12/29/23 Assessment Was Performed Next Review Type Continued Stay Review
[2023-12-29 20:00] VITALS: BP 98/54; PULSE 79; RESP 20; TEMP 36.1; O2SAT 97
[2023-12-30] MEDS: SODIUM CHLORIDE 0.9% 1,000 ML 100 ML IV (00:49)
[2023-12-30 02:10] VITALS: BP 94/53; PULSE 72; RESP 20; TEMP 36.1; O2SAT 93
[2023-12-30] MEDS: HYDROMORPHONE 1 MG INJ 0.5 MG IV (04:09)
[2023-12-30] MEDS: ACETAMINOPHEN 325 MG TABLET 650 MG PO ×4 (04:09→22:58)
[2023-12-30 08:00] VITALS: BP 100/62; PULSE 71; RESP 18; TEMP 36.4; O2SAT 94
[2023-12-30] MEDS: PIPERACILLIN/TAZO 3.375 GM in SODIUM CHLORIDE 0.9% 100 ML IV ×3 (08:10→22:59)
[2023-12-30 12:00] VITALS: RESP 16; O2SAT 92
--- NOTE | 2023-12-30 16:02 | CM.DPNOTE ---
DCP note AIR BOX TESTER reviewed EMR. per nursing staff, pt remains on clear liquids. per surgeon note, continue on iv abx and clear liquids for now. Unable to meet with today due to triaging needs. P: anticipate home when medically stable, will follow close for transport/work excuse letter needs. CM team will notify TCM OP team at [facility]. CM team will follow closely for any additional needs that arise. BRYSON Loja
--- NOTE | 2023-12-30 16:04 | PM.PN.1 ---
Subjective Subjective Date Patient Seen: 12/30/23 Time Patient Seen: 16:04 Interval history: Feeling better today. Tolerating clear liquid diet. Exam Vital Signs (past 8 hours): - 12/30/23 12:00 Respiratory Rate 16 Pulse Oximetry 92 Oxygen Delivery Method Room Air Oxygen Flow Rate 0 Narrative Exam Narrative: Abdomen is soft Objective Labs 12/29/23 03:55 12/29/23 03:55 PFS Medical History Chicken pox (~1990) Surgical History S/P cholecystectomy Family History Father Diabetes mellitus Hyperlipidemia Hepatitis C Mother Osteoporosis Grandfather Bladder cancer Social History household members: children Smoking Status: Current every day smoker Assessment & Plan Assessment and plan (1) Colonic diverticular abscess: Status: Acute Plan Improving on IV antibiotics Advance diet to regular tonight If she tolerates diet she may be able to go home tomorrow on oral antibiotics We will arrange for an outpatient CT scan sometime next week Time-Based Coding :: [TOTAL MINUTES] spent with patient and on the chart (including review of chart, obtaining history, exam, reviewing outside data, placing orders, documenting exam and treatment plan, and counseling patient) on [DATE].
[2023-12-30 18:00] VITALS: BP 102/60; PULSE 64; TEMP 36.4; O2SAT 98
[2023-12-30 21:46] VITALS: BP 106/72; PULSE 70; RESP 16; TEMP 36.2; O2SAT 97
[2023-12-31 05:09] LABS: Add Manual Diff / Slide Review NO; Basophils Absolute Auto 100 /uL (0-100); Basophils Percent Auto 0.7 % (0-2); Eosinophils Absolute Auto 200 /uL (0-450); Eosinophils Percent Auto 2.1 % (2-4); Hematocrit 39.2 % (36-46); Hemoglobin 12.9 g/dL (12.0-16.0); Lymphocytes Absolute Auto 2800 /uL (1100-4500); Lymphocytes Percent Auto 33.7 % (25-40); Mean Corpuscular Hemoglobin 29.4 PG (26-34); Mean Corpuscular Volume 89.1 fL (80-100); Monocytes Absolute Auto 500 /uL (0-900); Monocytes Percent Auto 6.3 % (3-14); Neutrophils Absolute Auto 4700 /uL (1500-7000); Neutrophils Percent Auto 57.2 % (50-75); Platelet Count 360 X10^3/uL (150-400); Red Cell Distribution Width 13.4 % (11.6-14.8); White Blood Cell Count 8.2 X10^3/uL (4.5-11.0)
[2023-12-31] MEDS: ACETAMINOPHEN 325 MG TABLET 650 MG PO (07:46)
[2023-12-31 08:00] VITALS: BP 112/65; PULSE 64; RESP 18; TEMP 36.3; O2SAT 92
--- NOTE | 2023-12-31 09:50 | P.PN_ITS ---
Subjective Subjective Date Patient Seen: 12/31/23 Time Patient Seen: 09:50 Exam Vital Signs (past 8 hours): - 12/31/23 08:00 Temperature 97.3 F L Pulse Rate 64 Respiratory Rate 18 Blood Pressure 112/65 Pulse Oximetry 92 Oxygen Delivery Method Room Air Oxygen Flow Rate 0 Narrative Exam Narrative: Still hurts moderately in her RLQ with palapation Objective Labs 12/31/23 05:02 12/29/23 03:55 Labs: Laboratory Results - last 24 hr 12/31/23 05:02 WBC 8.2 RBC 4.40 Hgb 12.9 Hct 39.2 MCV 89.1 MCH 29.4 MCHC 33.0 RDW 13.4 Plt Count 360 Neut % (Auto) 57.2 Lymph % (Auto) 33.7 [place] % (Auto) 6.3 Eos % (Auto) 2.1 Baso % (Auto) 0.7 Neut # (Auto) 4700 Lymph # (Auto) 2800 [place] # (Auto) 500 Eos # (Auto) 200 Baso # (Auto) 100 PFSH Medical History Chicken pox (~1990) Surgical History S/P cholecystectomy Family History Father Diabetes mellitus Hyperlipidemia Hepatitis C Mother Osteoporosis Grandfather Bladder cancer Social History household members: children Smoking Status: Current every day smoker Assessment & Plan Assessment and plan (1) Colonic diverticular abscess: Problem details: 2nd episode of diverticular abscess.. Needs GI colonoscopy, and Gyne clearance, and then Sigmoidectomy; CONTINUE Augmentin x 10 days, and I will give her Few Percocets, and Senokot-s. F/u CT scan This coming Tuesday. Status: Acute Time-Based Coding :: [TOTAL MINUTES] spent with patient and on the chart (including review of chart, obtaining history, exam, reviewing outside data, placing orders, documenting exam and treatment plan, and counseling patient) on [DATE].
[2023-12-31] MEDS: AMOXICILLIN/CLAV 875/125 MG 1 TAB PO (10:12)
--- NOTE | 2023-12-31 11:38 | PC.NURSE ---
Addendum entered by Marisol Valero R.N. 12/31/23 14:10: Pt recieved aminta pineda instructions and paper RX for pain med Pt escorted by staff via W/C to waiting vehicle D/C in stable stsatus Original Note: Pt A/O, med w/ tylenol this am. D/C orders received. SL D/c, intact. Call light w/in reach, pt calls appropriately for needs. Continue w/plan of care.
--- NOTE | 2023-12-31 11:57 | CM.DPNOTE ---
Addendum entered by BRYSON Loja 12/31/23 14:46: OUTPATIENT FACILITY PHYSICAL THERAPIST updated TCM team of pt's dc and OP f/u plan from surgical team. SL Original Note: DCP Note OUTPATIENT FACILITY PHYSICAL THERAPIST reviewed EMR. Per general surgeon, cleared to dc today. OUTPATIENT FACILITY PHYSICAL THERAPIST met with pt in room. Reports someone is on way from [facility] to pick her up but they could not get a reservation for ride back. OUTPATIENT FACILITY PHYSICAL THERAPIST completed priority boarding pass and gave it to pt. Pt appreciative. Denies other CM/DCP needs. P: dc today with OP f/u, friend to transport home in [facility] and [facility]. CM team will continue to follow as needed BRYSON Loja
[2023-12-31 12:00] VITALS: BP 115/68; PULSE 62; RESP 18; TEMP 36.1; O2SAT 97
--- NOTE | 2024-01-04 09:02 | PM.DS.1 ---
History of Present Illness History of Present Illness Chief complaint: r lower abd pain Narrative: Pt was admitted with RECURRENT sigmoid diverticulitis, she got over it fine, BUT NEEDS SIGMOID COLECTOMY, in 6-8 weeks, she will continue PO antibiotics x 10 days, and come back in 6-8 wks, for her sigmoidectomy. Discharge Providers Provider Date of admission: 12/28/23 18:10 Discharge Date: 01/02/24 Primary care physician: Edwina Alonso PA-C Discharge provider: Nancy Pretty MD Exam Vital Signs (past 8 hours): Oxygen Delivery Method Room Air Oxygen Flow Rate 0 Objective Labs 12/31/23 05:02 12/29/23 03:55 PFSH Medical History Chicken pox (~1990) Surgical History S/P cholecystectomy Family History Father Diabetes mellitus Hyperlipidemia Hepatitis C Mother Osteoporosis Grandfather Bladder cancer Social History household members: children Smoking Status: Current every day smoker Discharge Plan Discharge Plan Patient Disposition: Home Provider Discharge Comment: She needs another CT scan next week, and if good, she will continue Augmentin x 10 days, and then get a colonoscopy by GI and Gyne to check BEFORE her lap sigmoidectomy, in 6-8 wks. Discharge orders & Medications Prescriptions: New sennosides-docusate sodium [Senna-S] 8.6-50 mg tablet 2 tab-cap PO BEDTIME Qty: 30 2RF oxycodone-acetaminophen [Percocet] 5-325 mg tablet 1 tab PO Q4-6H PRN (Reason: pain) Qty: 42 0RF amoxicillin-pot clavulanate [Augmentin] 500-125 mg tablet 1 tab PO Q12H Qty: 20 0RF Continued omeprazole 20 mg capsule,delayed release(DR/EC) 20 mg PO BID Qty: 30 2RF Follow up/Referrals: Edwina Alonso PA-C [Primary Care Provider] - Visit Report/Discharge Packet Stand Alone Forms: Patient Portal/API, Stroke Signs & Symptoms Discharge Data Primary Care Provider: Edwina Alonso
== END 2023-12-31 14:13 | disposition home or self-care (01) | DRG 391 ==
LOC: ED 11:17 → AC 18:11 → ICU 18:32 → AC 12-29 16:19
PROVIDERS: Admitting Provider Surgery; Emergency Provider Student in an Organized Health Care Education/Training Program; PCP Physician Assistant Medical; Referring Provider Student in an Organized Health Care Education/Training Program; Visit Provider Surgery
DX: K57.20 Diverticulitis of large intestine with perforation and abscess without bleeding (principal); K65.1 Peritoneal abscess
CPT/HCPCS: 36415; 74177; 80048; 80053; 81003; 81015; 81025; 83605; 83690; 85025; 87797; 96365; 96375; 96376; 99222; 99231; 99232; 99238; 99284; 99285; J1171; J2270; J2405; J2543; Q9967

== ENCOUNTER → 2024-01-04 13:16 | Outpatient (CLI) | payer BC, SELFPAY ==
[2023-12-28 19:16] VITALS: BMI 29.2
--- NOTE | 2024-01-04 13:18 | DI.CT.S_ITS ---
PROCEDURE: CT ABDOMEN PELVIS W CON INDICATIONS: Diverticulitis TECHNIQUE: After the administration of intravenous contrast, axial sections acquired from the lung bases to the pubic symphysis. Coronal and sagittal reformats were performed. For radiation dose reduction, the following was used: automated exposure control, adjustment of mA and/or kV according to patient size. COMPARISON: [facility], CT, CT ABDOMEN PELVIS W CON, 12/28/2023, 12:09. FINDINGS: Image quality: Diagnostic. Lower Chest: No significant findings. ABDOMEN: Liver: No solid mass. Gallbladder: Cholecystectomy. Stable rim of fluid in the gallbladder fossa, without reactive inflammatory changes. This probably represents a postoperative seroma. Biliary ducts: No biliary dilation. Pancreas: No ductal dilation. Spleen: Size is within normal limits. Adrenal Glands: No adrenal nodules. Kidneys and Ureters: No hydronephrosis. No solid mass. No complex renal cystic lesion which requires follow up. Stomach and Bowel: Normal colonic caliber, without significant wall thickening. Reactive wall thickening of the sigmoid colon. Diverticulosis. Peritoneum: Persistent inflammatory change in the right lower quadrant. The thick-walled collection just deep to the right rectus muscle measures 2.1 x 0.8 cm, previously 3.2 x 1.6 cm. Interval growth of a right lower quadrant collection measuring 4.3 x 2.7 cm, previously 2.3 x 1.4 cm (series 2, image 111). This collection is closely associated with the right ovary. Ventral Wall: No significant ventral hernia. Abdominal Nodes: No retroperitoneal or mesenteric adenopathy by size criteria. Vessels: Aorta and inferior vena cava are normal in size. PELVIS: Pelvic Organs: See discussion under peritoneum. Bladder: No bladder wall thickening, accounting for underdistention. Pelvic Nodes: No enlarged lymph nodes. Miscellaneous: No inguinal hernias are seen. Bones: No aggressive osseous abnormality. IMPRESSION: Persistent inflammatory change in the right lower quadrant. Slight interval decrease in size of the thick-walled collection just deep to the right rectus muscle, now measuring 2.1 x 0.8 cm. However, there has been interval growth of a right lower quadrant collection measuring 4.3 x 2.7 cm, previously 2.3 x 1.4 cm. This collection is closely associated with the right ovary. Findings could indicate a tubo-ovarian abscess versus diverticular abscess. Recommend pelvic MRI with contrast for further characterization, as the management might change depending on the etiology. Dictated by: Bhupendra Marie M.D. on 01/04/2024 at 16:37 Approved by: Bhupendra Marie M.D. on 01/04/2024 at 16:46
== END ==
PROVIDERS: PCP Family Medicine; Referring Provider Surgery; Visit Provider Surgery
DX: K57.20 Diverticulitis of large intestine with perforation and abscess without bleeding (principal); Z90.49 Acquired absence of other specified parts of digestive tract
CPT/HCPCS: 74177; Q9967

== ENCOUNTER 2024-01-04 16:58 | Emergency (ER) | payer BC, SELFPAY ==
[2023-12-28 19:16] VITALS: BMI 29.2
[2024-01-04] VITALS (10 sets, daily range): BP systolic 104–126; BP diastolic 63–71; PULSE 93–100; RESP 14–23; TEMP 37.1–37.3; O2SAT 96–100; BMI 29.2
--- NOTE | 2024-01-04 17:35 | EKG_ITS ---
[place] [address] [address] [place] [id number] Test Date: 2024-01-04 Pat Name: Vandana Pena Department: [facility] Room: Gender: Female Recorder Helper Seismograph: JODY : 1990 Requested By: Order Number: [id number] Reading MD: Abram Spencer Measurements Intervals Rose Rate: 98 P: 33 NH: 156 QRS: 37 QRSD: 70 T: 28 QT: 330 QTc: 421 Interpretive Statements Normal sinus rhythm Electronically Signed On 01-05-2024 8:27:40 PDT by Abram Spencer
[2024-01-04 18:00] LABS: Add Manual Diff / Slide Review NO; Basophils Absolute Auto 0 /uL (0-100); Basophils Percent Auto 0.9 % (0-2); Eosinophils Absolute Auto 0 /uL (0-450); Eosinophils Percent Auto 0.9 % (2-4); Hematocrit 42.1 % (36-46); Hemoglobin 13.8 g/dL (12.0-16.0); Lymphocytes Absolute Auto 400 /uL (1100-4500); Lymphocytes Percent Auto 10.4 % (25-40); Mean Corpuscular HGB Conc 32.7 % (30-36); Mean Corpuscular Hemoglobin 29.1 PG (26-34); Monocytes Absolute Auto 400 /uL (0-900); Monocytes Percent Auto 10.7 % (3-14); Neutrophils Absolute Auto 3100 /uL (1500-7000); Neutrophils Percent Auto 77.1 % (50-75); Platelet Count 298 X10^3/uL (150-400); Red Blood Cell Count 4.73 X10^6/uL (4.0-5.2); Red Cell Distribution Width 13.5 % (11.6-14.8); White Blood Cell Count 4.1 X10^3/uL (4.5-11.0)
[2024-01-04] MEDS: SODIUM CHLORIDE 0.9% 1,000 ML 1000 ML IV (18:00)
[2024-01-04 18:08] LABS: INR 1.1 (0.9-1.3); Prothrombin Time 12.2 SECONDS (9.4-12.5)
[2024-01-04 18:10] LABS: Lactate (Lactic Acid) 1.1 mmol/L (0.7-2.1)
[2024-01-04 18:11] LABS: Alanine Aminotransferase 44 IU/L (<35); Albumin 4.9 g/dL (3.5-5.0); Albumin Globulin Ratio 1.4 (1.0-2.8); Alkaline Phosphatase 67 U/L (38-126); Aspartate Aminotransferase 35 IU/L (14-36); BUN Creatinine Ratio 7.6 (6-22); Bilirubin Total 0.5 mg/dL (0.2-1.3); Blood Urea Nitrogen 5 mg/dL (7-17); Calcium 9.5 mg/dL (8.4-10.2); Carbon Dioxide 26 mmol/L (22-32); Chloride 96 mmol/L (98-107); Estimated Glomerular Filt Rate > 60 mL/min (>60); Globulin 3.5 g/dL (1.7-4.1); Glucose 115 mg/dL (70-100); HEMOLYSIS < 15 (0-50); Lipase 31 U/L (23-300); PTT Partial Thromboplastin Tim 38 SECONDS (25.1-36.5); Potassium 3.8 mmol/L (3.4-5.1); Sodium 133 mmol/L (137-145); Total Protein 8.4 g/dL (6.3-8.2)
--- NOTE | 2024-01-04 18:15 | ED.ABDPAIN ---
HPI - Abdominal Pain General Chief Complaint: Abdominal Pain Stated Complaint: abcess stomach had CT scan N/V fever chills Time Seen by Provider: 01/04/24 18:15 Source: patient Mode of arrival: Ambulatory History of Present Illness HPI narrative: 33-year-old female with ongoing right-sided diverticular abscess problems, had interval outpatient CT earlier today, told that her recent fluid collection has enlarged, here for further evaluation and treatment plan. Patient with history of prior cholecystectomy, history of prior C diff infection treated with oral vancomycin September 2023, prior diverticular fluid collection evaluation right side near her ovary, presented to ED here on 12/11/[address] showing diverticulosis and small right ovarian cyst but no acute diverticulitis changes at that time. Patient subsequently presented again here 12/28/2023 with right lower abdominal discomfort, on imaging at that time had diverticular abscess changes, 3.4 cm fluid collection right lower quadrant attributed to abscess, 5 cm adjacent fluid collection suspected contained perforation from diverticulitis. Patient was admitted here 12/28/2023, treated with IV antibiotics, taking oral Augmentin antibiotic, with plan to have interval partial colectomy 6-8 weeks, patient discharge instruction mentioned repeat scanning in 1 week, she came here today 2 days after discharge for scanning. CT scan today apparently shows fluid collections that are increased in size. She has not been having significant pain, still has some discomfort right lower quadrant but tolerable, taking oral analgesics. No fevers, however did have some chills earlier today. Related Data Previous Rx's Medication Instructions Recorded omeprazole 20 mg capsule,delayed 20 mg PO BID upper abd pain #30 09/12/23 release caps amoxicillin 500 mg-potassium 1 tab PO Q12H #20 tabs 12/31/23 clavulanate 125 mg tablet (Augmentin) oxycodone-acetaminophen 5 mg-325 1 tab PO Q4-6H PRN pain #42 tabs 12/31/23 mg tablet (Percocet) sennosides 8.6 mg-docusate sodium 2 tab-cap (2 x 8.6-50 mg) PO 12/31/23 50 mg tablet (Senna-S) BEDTIME #30 tabs Allergies Allergy/AdvReac Type Severity Reaction Status Date / Time hydrocodone [From Vicodin] AdvReac Mild Vomiting Verified 01/04/24 17:18 Review of Systems Review of Systems Narrative: see HPI Patient History Medical History Chicken pox (~1990) Surgical History S/P cholecystectomy Family History Father Diabetes mellitus Hyperlipidemia Hepatitis C Mother Osteoporosis Grandfather Bladder cancer Social History household members: children Smoking Status: Current every day smoker Smoking Status: Current every day smoker alcohol intake frequency: holidays/special occasions only Substance Use Type: marijuana Exam Narrative Exam Narrative: GENERAL: Well-developed patient, in mild distress. HEAD: Atraumatic. Normocephalic. EYES: Pupils equal round and reactive. Extraocular motions intact. No scleral icterus. No injection or drainage. ENT: Nose without bleeding, purulent drainage. Throat without erythema, tonsillar hypertrophy or exudate. Airway patent. NECK: Trachea midline. Non tender CARDIOVASCULAR: Regular rate and rhythm without murmurs, gallops, or rubs. RESPIRATORY: Clear to auscultation. Breath sounds equal bilaterally. No wheezes, rales, or rhonchi. GASTROINTESTINAL: Abdomen soft, mild tenderness right lower quadrant, nondistended, nonpulsatile mass. No guarding or rebound tenderness. EXTREMITIES: No edema or joint tenderness. BACK: Nontender without deformity or crepitance. No flank tenderness. NEURO: AOx3. Motor functions grossly nonfocal SKIN: No rash or erythema of visible areas Initial Vital Signs Initial Vital Signs: Vital Signs Temperature 98.7 F 01/04/24 17:11 Pulse Rate 99 H 01/04/24 17:11 Respiratory Rate 17 01/04/24 17:11 Blood Pressure 126/71 01/04/24 17:11 Pulse Oximetry 97 01/04/24 17:11 Oxygen Delivery Method Room Air 01/04/24 17:11 Course Orders Ordered: ED Orders 01/04/24 17:20 EKG-12 Lead Stat RT Consult Eval and Treat NOW 01/04/24 17:45 Complete Blood Count AUTO DIFF Stat Comprehensive Metabolic Panel Stat Lactate (Lactic Acid) Stat Lipase Stat PTT Partial Thromboplastin Yoan Stat Procalcitonin Stat Prothrombin Time INR Stat Urine Microscopic Stat 01/04/24 18:00 Blood Culture Stat Discontinued Medications Sodium Chloride (Normal Saline 0.9%) 1,000 mls @ 1,000 mls/hr IV BOLUS ONE Stop: 01/04/24 18:18 Last Infusion: 01/04/24 20:01 Dose: Infused Documented By: Admin: 01/04/24 18:00 Dose: 1,000 mls/hr Documented By: LISBETH Ondansetron HCl (Ondansetron 4 Mg/2 Ml Inj) 4 mg IV NOW PRN PRN Reason: Nausea And Vomiting Ondansetron HCl (Ondansetron 4 Mg Odt) 4 mg SL NOW PRN PRN Reason: Nausea And Vomiting Vital Signs Vital signs: Vital Signs - 8 hr 01/04/24 18:00 01/04/24 18:03 01/04/24 18:03 Temperature 99.1 F Pulse Rate 93 H 94 H Respiratory Rate 15 Blood Pressure 107/64 Pulse Oximetry 96 Oxygen Delivery Method Room Air 01/04/24 18:30 01/04/24 18:30 01/04/24 18:39 Temperature Pulse Rate 96 H Respiratory Rate 23 Blood Pressure 107/65 109/68 Pulse Oximetry 96 Oxygen Delivery Method 01/04/24 18:39 01/04/24 19:55 01/04/24 19:56 Temperature Pulse Rate 95 H 95 H Respiratory Rate 17 14 Blood Pressure 104/63 Pulse Oximetry 100 98 Oxygen Delivery Method Room Air Room Air 01/04/24 20:06 Temperature Pulse Rate 100 H Respiratory Rate 17 Blood Pressure 104/63 Pulse Oximetry 96 Oxygen Delivery Method Room Air MDM - Abdominal Pain Lab Data Attestation: I reviewed the patient's lab results. Lab results narrative: White blood cell count 4100, hemoglobin 13.8, platelets adequate. CMP unremarkable. LFTs and lipase normal. 01/04/24 17:45 01/04/24 17:45 Labs: Lab Results 01/04/24 Range/Units 17:45 WBC 4.1 L (4.5-11.0) X10^3/uL RBC 4.73 (4.0-5.2) X10^6/uL Hgb 13.8 (12.0-16.0) g/dL Hct 42.1 (36-46) % MCV 89.0 (80-100) fL MCH 29.1 (26-34) PG MCHC 32.7 (30-36) % RDW 13.5 (11.6-14.8) % Plt Count 298 (150-400) X10^3/uL Neut % (Auto) 77.1 H (50-75) % Lymph % (Auto) 10.4 L (25-40) % [place] % (Auto) 10.7 (3-14) % Eos % (Auto) 0.9 L (2-4) % Baso % (Auto) 0.9 (0-2) % Neut # (Auto) 3100 (4649-1131) /uL Lymph # (Auto) 400 L (7725-6857) /uL [place] # (Auto) 400 (0-900) /uL Eos # (Auto) 0 (0-450) /uL Baso # (Auto) 0 (0-100) /uL PT 12.2 (9.4-12.5) SECONDS INR 1.1 (0.9-1.3) APTT 38 H (25.1-36.5) SECONDS Sodium 133 L (137-145) mmol/L Potassium 3.8 (3.4-5.1) mmol/L Chloride 96 L (98-107) mmol/L Carbon Dioxide 26 (22-32) mmol/L BUN 5 L (7-17) mg/dL Creatinine 0.66 (0.52-1.04) mg/dL Estimated GFR > 60 (>60) mL/min BUN/Creatinine Ratio 7.6 (6-22) Glucose 115 H (70-100) mg/dL Lactate 1.1 (0.7-2.1) mmol/L Calcium 9.5 (8.4-10.2) mg/dL Total Bilirubin 0.5 (0.2-1.3) mg/dL AST 35 (14-36) IU/L ALT 44 H (<35) IU/L Alkaline Phosphatase 67 (38-126) U/L Total Protein 8.4 H (6.3-8.2) g/dL Albumin 4.9 (3.5-5.0) g/dL Globulin 3.5 (1.7-4.1) g/dL Albumin/Globulin Ratio 1.4 (1.0-2.8) Lipase 31 (23-300) U/L Procalcitonin 0.047 (<0.5) ng/mL Urine RBC None seen (0-5/HPF) Urine WBC None seen (0-5/HPF) Ur Squamous Epith Cells None seen (0-5/HPF) Urine Bacteria None seen (None) Ur Culture Indicated? Cult not indicated Vol Urine Centrifuged 10ml (spun) Point of care testing: Point of Care Testing Test Results Negative Urine Dip Bedside Urine Glucose Negative Bedside Urine Bilirubin - Negative Bedside Urine Ketone - Negative Urine Specific [place] 1.005 Bedside Urine Occult Blood + Bedside Urine pH 6.5 Bedside Urine Protein - Negative Bedside Urine Urobilinogen - Negative Bedside Urine Nitrite - Negative Bedside Urine Leukocytes - Negative Esterase ECG Data Attestation: I personally reviewed and interpreted this ECG as follows: Interpretation: Normal sinus rhythm with rate 98, no obvious ST segment elevation or depression changes. MS 156, QRS 70, QTC 421. MDM Narrative Medical decision making narrative: 33-year-old female had interval outpatient CT abdomen and pelvis reportedly worse findings, compared to her recent inpatient stay, has history of right-sided diverticular abscess, treated as inpatient here 12/28/2023 through 01/02/2024, with IV antibiotics, no surgical procedures by Interventional Radiology or by General surgery. She is taking oral Augmentin antibiotic. Afebrile, sirs screen negative. Some tenderness right lower quadrant. She declines pain meds. Screening labs unremarkable. We will obtain CT report from earlier today as an outpatient. CT abdomen and pelvis report done today, with IV contrast, done a proximally 1:30 p.m. impressions: ?Persistent inflammatory change in the right lower quadrant. Slight interval decrease size of thick-walled collection just deep to the right rectus muscle, now measuring 2.1 x 0.8cm. However there has been interval growth of the right lower quadrant collection measuring 4.3 x 2.7, which was previously 2.3 x 1.4 cm. This collection is closely associated with the right ovary. Findings could indicate tubo-ovarian abscess versus diverticular abscess. Recommend pelvic MRI with contrast for further characterization, as the management might change depending on the etiology.? See radiology report CT abdomen and pelvis report from 12/28/23. Impressions: ?3.4 cm fluid collection right lower quadrant which is attributed to an abscess. Adjacent to the discrete abscess there is a 5 cm collection of fluid and gas, which is attributed to a contained perforation from diverticulitis. Adjacent to the extraluminal gas and fluid there is diverticulitis of the sigmoid colon, with inflamed sigmoid colon, which is tortuous and migrates into the right lower quadrant. The appendix is normal. There is a moderately sized fat containing epigastric hernia, with inflammatory changes seen within a hernia. This hernia is increased in size compared to recent study dated 12/11/23. Additional findings of cholecystectomy.. See radiology report from that prior visit Case discussed with surgery, advises continued course of oral antibiotic, follow up with gynecology. Patient does not identify any customer care agent at [facility] or other customer care agent that she is near term follow up with at this time. She lives in [facility]. We will contact gynecology here to help arrange near term follow up. Follow up with surgery for planned interval partial colectomy as per discharge summary recent. 1929, Case discussed with local gynecology Dr Hearn on-call, she can see patient in near term follow up for ovarian cysticic fluid collection. Follow up with her surgeon advised as planned. Follow up with Gynecology as above. Return precautions discussed. Discharged home. Diin-mag-kmbazii analgesics as needed advised. Return precautions discussed. Discharge Plan Departure Patient Disposition: Home Clinical Impression: Diverticulitis, Colonic diverticular abscess, Ovarian cyst Activity Restrictions/Additional Instructions: Recent hospitalization for right-sided diverticular abscess, treated with IV antibiotics, no drainage procedure, possible interval partial colectomy once this is all healed, follow up with General surgery plan. Follow up CT scan abdomen and pelvis done this morning as scheduled, and showed smaller diverticular abscess area of concern, but slightly larger fluid collection that may be right-sided ovarian cyst. Case discussed with gynecology doctor wearing on-call, she can coordinate further near term follow up for this problem, likely we will get interval repeat pelvic ultrasound imaging. Contact her office advised to schedule near term follow up. Follow up with General surgery as planned. Continue your course of oral antibiotics Augmentin. Return earlier to this/nearest emergency department for any change worsening symptoms or any concerns prior Prescriptions: No Action sennosides-docusate sodium [Senna-S] 8.6-50 mg tablet 2 tab-cap PO BEDTIME Qty: 30 2RF oxycodone-acetaminophen [Percocet] 5-325 mg tablet 1 tab PO Q4-6H PRN (Reason: pain) Qty: 42 0RF amoxicillin-pot clavulanate [Augmentin] 500-125 mg tablet 1 tab PO Q12H Qty: 20 0RF omeprazole 20 mg capsule,delayed release(DR/EC) 20 mg PO BID Qty: 30 2RF Referrals: Nancy Pretty MD [Physician] - Edwina Villa MD [Primary Care Provider] - Jeni Hearn MD [Physician] - Stand Alone Forms: Patient Portal/API
[2024-01-04 18:27] LABS: Procalcitonin 0.047 ng/mL (<0.5)
--- NOTE | 2024-01-04 18:53 | PC.NURSE ---
Pt reports hx of asymptomatic hematuria.
[2024-01-04 19:08] LABS: Bacteria Urine None Seen; Culture Indicated Urine Cult Not Indicated; RBC Urine None Seen (0-5/HPF); Squamous Epithelial Cell Urine None Seen (0-5/HPF); Urine Volume 10mL (spun); WBC Urine None Seen (0-5/HPF)
== END 2024-01-04 20:06 | disposition home or self-care (01) ==
PROVIDERS: Emergency Medicine; Emergency Provider Emergency Medicine; PCP Family Medicine
DX: K57.20 Diverticulitis of large intestine with perforation and abscess without bleeding (principal); N83.201 Unspecified ovarian cyst, right side; R79.89 Other specified abnormal findings of blood chemistry; Z90.49 Acquired absence of other specified parts of digestive tract
CPT/HCPCS: 36415; 74177; 80053; 81003; 81015; 81025; 83605; 83690; 84145; 85025; 85610; 85730; 87040; 93005; 96360; 99284; Q9967

== ENCOUNTER → 2024-01-11 09:19 | Outpatient (CLI) | payer BC, SELFPAY ==
[2023-12-28 19:16] VITALS: BMI 29.2
[2024-01-11 19:24] LABS: Alanine Aminotransferase 47 IU/L (<35); Albumin 4.3 g/dL (3.5-5.0); Albumin Globulin Ratio 1.3 (1.0-2.8); Alkaline Phosphatase 92 U/L (38-126); Aspartate Aminotransferase 70 IU/L (14-36); BUN Creatinine Ratio 10.1 (6-22); Bilirubin Total 0.3 mg/dL (0.2-1.3); Blood Urea Nitrogen 7 mg/dL (7-17); Calcium 9.3 mg/dL (8.4-10.2); Carbon Dioxide 26 mmol/L (22-32); Chloride 104 mmol/L (98-107); Cholesterol 173 mg/dL (140-199); Estimated Glomerular Filt Rate > 60 mL/min (>60); Globulin 3.3 g/dL (1.7-4.1); Glucose 98 mg/dL (70-100); HDL Cholesterol 32 mg/dL (40-60); HEMOLYSIS 18 (0-50); LDL Cholesterol Calculated 110 mg/dL (<100); Sodium 137 mmol/L (137-145); Total Protein 7.6 g/dL (6.3-8.2); Triglycerides 153 mg/dL (35-150)
[2024-01-11 19:50] LABS: TSH w/ Reflex to FT4 0.89 uIU/mL (0.47-4.68)
== END ==
PROVIDERS: PCP Family Medicine; Visit Provider Family Medicine
DX: E78.2 Mixed hyperlipidemia (principal)
CPT/HCPCS: 80053; 80061; 84443